=== PATIENT | male | born 1940 | race Caucasian/White ===

== ENCOUNTER → 2018-04-18 | Outpatient (CLI) | payer MEDICARE, OTHER ==
[~2018-04-18] MED LIST: ACETAMINOPHEN-1 EAC1 PO; ASPIR 8181 MG PO; CENTRUM SILVER1 EAC2 PO; KEFLEX500 M1 PO; PRINIVIL10 MG PO
== END ==
LOC: M.ULTRA 10:10
DX: I65.23 Occlusion and stenosis of bilateral carotid arteries (principal)

== ENCOUNTER → 2019-04-14 | Outpatient (CLI) | payer MEDICARE | LOC: M.ULTRA 04-09 17:27 | DX: I65.23 Occlusion and stenosis of bilateral carotid arteries (principal); I73.9 Peripheral vascular disease, unspecified; I71.4 Abdominal aortic aneurysm, without rupture; Z72.0 Tobacco use ==

== ENCOUNTER 2019-05-22 12:10 | Inpatient (IN) | payer MEDICARE, BC ==
[~2019-05-22] VITALS: Ht 172.7 cm; Wt 90.7 kg
--- NOTE | ~2019-05-22 | EKG ---
[place] [address] ELECTROCARDIOGRAM REPORT Name: LETICIA SANCHEZ Room: [address] ADM IN M.R.#: [id number] Admission: 05/22/19 Attend Phys: Zeeshan Drew Discharge: Date of : 36 Report #: [id number] THIS REPORT FOR: //name// [facility] Test Date: 2019-05-28 Test Time: 08:06:44 Pat Name: LETICIA SANCHEZ Department: Room: [address] Gender: M Tire Layer: REGINE : 1940 Requested By: Leticia Braun Order Number: [id number] Reading MD: Measurements Intervals [place] Rate: 72 P: 50 CO: 195 QRS: 49 QRSD: 110 T: 40 QT: 381 QTc: 417 Interpretive Statements Sinus rhythm Low voltage, precordial leads Compared to ECG 05/27/2019 09:09:10 No significant changes [email or web address] By: [id number] [id number] Epiphany EpiphanyMD /EPI
[2019-05-22 12:21] VITALS: BP 114/62
[2019-05-22] MEDS ORDERED: LIPITOR 20 MG T20 M1 PO (12:28)
[2019-05-22 13:36] LABS: HEMOGLOBIN 13.7 gm/dL (14.0-18.0); MCH 32.9 pg (26.0-34.0); MCHC 34.2 g/dL (28.0-37.0); MCV 96.3 fL (80.0-100.0); MPV 7.1 fl. (7.2-11.1); NUCLEATED RBCS 0 /100WBC; PLATELET COUNT* 390 thou/uL (150-400); RBC 4.15 mil/uL (4.50-6.00); WBC 13.5 thou/uL (4.0-11.0)
[2019-05-22 13:45] LABS: PO2 69.1 mmHg (75.0-100.0)
[2019-05-22 13:46] LABS: APTT 25.7 Seconds (25.0-31.3); INR 1.1; PROTIME 11.2 Seconds (9.20-11.50)
[2019-05-22 13:46] LABS: PCO2 62.7 mmHg (35.0-45.0); pH 7.259 (7.340-7.450)
[2019-05-22 13:57] LABS: CALCIUM 8.9 mg/dL (8.5-10.1); CREATININE 1.7 mg/dL (0.6-1.3); POTASSIUM 5.5 mmol/L (3.5-5.1)
[2019-05-22 14:00] LABS: ABSOLUTE BASOPHILS 0.3 thou/uL (0.0-0.2); ABSOLUTE EOSINOPHILS 0.1 thou/uL (0.0-0.7); ABSOLUTE LYMPHOCYTES 1.8 thou/uL (0.8-5.3); ABSOLUTE MONOCYTES 0.5 thou/uL (0.0-1.2); ABSOLUTE NEUTROPHILS 10.8 thou/uL (1.6-8.1); ATYPICAL LYMPHS 1 %; METAMYELOCYTES 3 %; PLATELET ESTIMATE ADEQUATE
[2019-05-22 14:01] LABS: TOTAL BILIRUBIN 0.5 mg/dL (<0.1-1.0); TOTAL PROTEIN 7.4 g/dL (6.4-8.2)
[2019-05-22 18:58] VITALS: BP 104/62
[2019-05-22 20:00] VITALS: BP 154/79
[2019-05-23 01:18] VITALS: BP 135/59
[2019-05-23 04:00] VITALS: BP 154/76
[2019-05-23 05:29] LABS: ABSOLUTE LYMPHOCYTES 0.6 thou/uL (0.8-5.3); ABSOLUTE MONOCYTES 1.4 thou/uL (0.0-1.2); ABSOLUTE NEUTROPHILS 10.2 thou/uL (1.6-8.1); BASOPHILS 0.1 %; MCH 32.9 pg (26.0-34.0); MCHC 34.2 g/dL (28.0-37.0); MCV 96.3 fL (80.0-100.0); MONOCYTES 11.2 %; MPV 6.7 fl. (7.2-11.1); NUCLEATED RBCS 0 /100WBC; PLATELET COUNT* 411 thou/uL (150-400); POLYS 83.7 %; RBC 3.94 mil/uL (4.50-6.00); WBC 12.2 thou/uL (4.0-11.0)
[2019-05-23 06:00] LABS: ALBUMIN 2.6 g/dL (3.4-5.0); CALCIUM 8.9 mg/dL (8.5-10.1); CREATININE 1.6 mg/dL (0.6-1.3); POTASSIUM 5.4 mmol/L (3.5-5.1); TOTAL BILIRUBIN 0.2 mg/dL (<0.1-1.0); TOTAL PROTEIN 7.8 g/dL (6.4-8.2)
[2019-05-23 08:00] VITALS: BP 120/69
[2019-05-23 12:37] VITALS: BP 153/80
[2019-05-23 15:45] LABS: URINE BILIRUBIN NEGATIVE (Negative); URINE BLOOD NEGATIVE (Negative); URINE CLARITY CLEAR; URINE COLOR YELLOW; URINE GLUCOSE-RANDOM NEGATIVE (Negative); URINE KETONES NEGATIVE (Negative); URINE LEUKOCYTES-REFLEX NEGATIVE (Negative); URINE NITRITE-REFLEX NEGATIVE (Negative); URINE PROTEIN TRACE (Negative); URINE SPECIFIC GRAVITY 1.025 (1.005-1.030); URINE UROBILINOGEN 0.2 E.U./dl (0.2-1.0)
[2019-05-23 15:48] VITALS: BP 108/57
[2019-05-23 20:00] VITALS: BP 152/71
[2019-05-24] VITALS: BP 143/70
[2019-05-24 04:00] VITALS: BP 145/79
[2019-05-24 08:00] VITALS: BP 132/77
[2019-05-24 12:49] LABS: ABSOLUTE LYMPHOCYTES 0.4 thou/uL (0.8-5.3); ABSOLUTE MONOCYTES 0.8 thou/uL (0.0-1.2); ABSOLUTE NEUTROPHILS 12.5 thou/uL (1.6-8.1); BASOPHILS 0.1 %; HEMOGLOBIN 12.6 gm/dL (14.0-18.0); LYMPHOCYTES 3.2 %; MCH 32.9 pg (26.0-34.0); MCHC 34.2 g/dL (28.0-37.0); MCV 96.2 fL (80.0-100.0); MONOCYTES 6.1 %; MPV 7.2 fl. (7.2-11.1); NUCLEATED RBCS 0 /100WBC; PLATELET COUNT* 405 thou/uL (150-400); POLYS 90.6 %; RBC 3.84 mil/uL (4.50-6.00); WBC 13.7 thou/uL (4.0-11.0)
[2019-05-24 13:11] LABS: ALBUMIN 2.5 g/dL (3.4-5.0); CALCIUM 8.8 mg/dL (8.5-10.1); CREATININE 1.5 mg/dL (0.6-1.3); POTASSIUM 4.7 mmol/L (3.5-5.1); TOTAL BILIRUBIN 0.2 mg/dL (<0.1-1.0); TOTAL PROTEIN 7.2 g/dL (6.4-8.2)
[2019-05-24 13:20] VITALS: BP 129/56
[2019-05-24 15:35] VITALS: BP 129/54
--- NOTE | 2019-05-24 16:39 | EKG ---
[place] [address] ELECTROCARDIOGRAM REPORT Name: LETICIA SANCHEZ Room: [address] ADM IN M.R.#: [id number] Admission: 05/22/19 Attend Phys: Zeeshan Drew Discharge: Date of : 36 Report #: [id number] THIS REPORT FOR: //name// [facility] Test Date: 2019-05-22 Test Time: 14:26:27 Pat Name: LETICIA SANCHEZ Department: Room: [facility] Gender: M Barber Or Beauty Shop Manager: [facility] : 1940 Requested By: Thomas Dooley Order Number: [id number] MD: Stalin Hong Measurements Intervals [place] Rate: 88 P: 64 DC: 195 QRS: 85 QRSD: 101 T: 45 QT: 366 QTc: 443 Interpretive Statements Sinus rhythm Borderline right axis deviation No previous ECG available for comparison Electronically Signed On 05-24-2019 16:38:35 KILN STACKER by Stalin Hong [email or web address] <ELECTRONICALLY SIGNED> By: Stalin Hong MD, [facility] 05/24/19 1638 1426 142 Stalin Hong MD, FACC /EPI
[2019-05-24 20:00] VITALS: BP 148/81
[2019-05-25] VITALS: BP 136/68
[2019-05-25 04:00] VITALS: BP 136/71
[2019-05-25 07:30] VITALS: BP 113/57
[2019-05-25 12:00] VITALS: BP 130/55
--- NOTE | 2019-05-25 12:28 | EKG ---
[place] [address] ELECTROCARDIOGRAM REPORT Name: LETICIA SANCHEZ Room: [address] ADM IN M.R.#: [id number] Admission: 05/22/19 Attend Phys: Zeehsan Drew Discharge: Date of : 36 Report #: [id number] THIS REPORT FOR: //name// [facility] Test Date: 2019-05-25 Test Time: 07:06:29 Pat Name: LETICIA SANCHEZ Department: Room: [address] Gender: M Cleat Feeder: CLARE : 1940 Requested By: Jalen Llamas Order Number: [id number] Ben MD: Leticia Braun Measurements Intervals [place] Rate: 138 P: MD: QRS: 78 QRSD: 88 T: 19 QT: 298 QTc: 452 Interpretive Statements Atrial fibrillation with rapid V-rate rsr' in v1 Compared to ECG 05/22/2019 14:26:27 Sinus rhythm no longer present Electronically Signed On 05-25-2019 12:27:50 LOSS PREVENTION AUDITOR by Leticia Braun [email or web address] <ELECTRONICALLY SIGNED> By: Leticia Braun MD, [facility] 05/25/19 1227 0706 Leticia Braun MD, [facility] /EPI
[2019-05-25 20:00] VITALS: BP 122/50
[2019-05-26 00:27] VITALS: BP 116/61
[2019-05-26 03:56] VITALS: BP 100/60
[2019-05-26 06:47] LABS: CHOLESTEROL 160 mg/dL (<200); HDL CHOLESTEROL 30 mg/dL (>40); LDL CHOLESTEROL 87 mg/dL (<100); TC:HDL 5.3 Ratio (Not establshd); TRIGLYCERIDE 217 mg/dL (<150); VLDL 43 mg/dL (<40)
[2019-05-26 06:48] LABS: SERUM ASSESSMENT Clear
[2019-05-26 07:30] VITALS: BP 97/52
[2019-05-26 11:41] VITALS: BP 92/58
--- NOTE | 2019-05-26 12:53 | EKG ---
[place] [address] ELECTROCARDIOGRAM REPORT Name: LETICIA SANCHEZ Room: [address] ADM IN .R.#: [id number] Admission: 05/22/19 Attend Phys: Zeeshan Drew Discharge: Date of : 36 Report #: [id number] THIS REPORT FOR: //name// [facility] Test Date: 2019-05-26 Test Time: 07:52:16 Pat Name: LETICIA SANCHEZ Department: Room: [address] Gender: M Hogshead Opener: : 1940 Requested By: Leticia Braun Order Number: [id number] Ben MD: Leticia Braun Measurements Intervals [place] Rate: 62 P: NC: QRS: 70 QRSD: 95 T: 47 QT: 424 QTc: 431 Interpretive Statements Atrial fibrillation Borderline low voltage, extremity leads Compared to ECG 05/25/2019 07:06:29 rate slowed Electronically Signed On 05-26-2019 12:52:33 LEAD MASSAGE THERAPIST by Leticia Braun [email or web address] <ELECTRONICALLY SIGNED> By: Leticia Braun MD, [facility] 05/26/19 1252 0752 075 Leticia Braun MD, FACC /EPI
--- NOTE | 2019-05-26 15:01 | EKG ---
[place] [address] ELECTROCARDIOGRAM REPORT Name: LETICIA SANCHEZ Room: [address] ADM IN .R.#: [id number] Admission: 05/22/19 Attend Phys: Zeeshan Drew Discharge: Date of : 36 Report #: [id number] THIS REPORT FOR: //name// [facility] Test Date: 2019-05-26 Test Time: 14:18:02 Pat Name: LETICIA SANCHEZ Department: Room: [address] Gender: M Regional Account Executive: : 1940 Requested By: Leticia Braun Order Number: [id number] Ben MD: Leticia Braun Measurements Intervals [place] Rate: 57 P: 52 [place]: 189 QRS: 52 QRSD: 106 T: 34 QT: 446 QTc: 435 Interpretive Statements Sinus rhythm Low voltage, precordial leads Compared to ECG 05/26/2019 07:52:16 Atrial fibrillation no longer present Electronically Signed On 05-26-2019 15:00:31 NAIL FEEDER by Leticia Braun [email or web address] <ELECTRONICALLY SIGNED> By: Leticia Braun MD, [facility] 05/26/19 1500 1418 141 Leticia Braun MD, [facility] /EPI
--- NOTE | 2019-05-26 15:33 | 2DMMODE ---
[place] [address] 2 D/M-MODE ECHOCARDIOGRAM Name: LETICIA SANCHEZ Room: [address] IN .R.#: [id number] Admission: 05/22/19 Attend Phys: Jalen Llamas Discharge: Date of : 36 Date of Service: 05/26/19 1532 Report #: [id number] THIS REPORT FOR: //name// APPROVED REPORT Study performed: 05/26/2019 10:54:50 EXAM: Comprehensive 2D, Doppler, and color-flow Echocardiogram BSA: 2.01 HR: 68 bpm BP: 97/52 mmHg Other Information Study Quality: Technically Difficult Technically limited study due to inability to position patient. Indications COPD Atrial Fibrillation 2D Dimensions IVSd: 10.42 (7-11mm) LVOT Diam: 19.62 (18-24mm) LVDd: 41.72 mm PWd: 10.42 (7-11mm) Ascending Ao: 30.04 (22-36mm) LVDs: 26.92 (25-40mm) Aortic Root: 26.33 mm Volumes Left Atrial Volume (Systole) LA ESV Index: 26.30 mL/m2 Aortic Valve AoV Peak Richard.: 1.25 m/s AO Peak Gr.: 6.22 mmHg LVOT Max P.93 mmHg AO Mean Gr.: 3.62 mmHg LVOT Mean P.90 mmHg LVOT Max V: 0.69 m/s AO V2 VTI: 24.72 cm LVOT Mean V: 0.43 m/s LEODAN (VTI): 1.47 cm2 LVOT V1 VTI: 12.01 cm Mitral Valve E/A Ratio: 1.66 MV Decel. Time: 149.18 ms MV E Max Richard.: 0.95 m/[place] [address] 2 D/M-MODE ECHOCARDIOGRAM Name: LETICIA SANCHEZ Room: [address] IN ..#: [id number] Admission: 05/22/19 Attend Phys: Jalen Llamas Discharge: Date of : 36 Date of Service: 05/26/19 1532 Report #: [id number] MV PHT: 43.26 ms MVA (PHT): 5.09 cm2 TDI E/Lateral E': 7.31 E/Medial E': 8.64 Medial E' Richard.: 0.11 m/s Lateral E' Richard.: 0.13 m/s Pulmonary Valve PV Peak Richard.: 0.62 m/s PV Peak Gr.: 1.54 mmHg Tricuspid Valve RAP Estimate: 5.00 mmHg TR Peak Gr.: 18.93 mmHg RVSP: 23.93 mmHg PA Pressure: 23.93 mmHg Left Ventricle The left ventricle is normal size. There is normal left ventricular wall thickness. The left ventricular systolic function is normal. A false tendon is noted. LVEF is 55-60%. This study is not technically sufficient to allow evaluation of the LV diastolic function due to atrial fibrillation. Right Ventricle Right ventricle is mildly dilated. The right ventricular systolic function is normal. Atria Left atrium is mildly dilated. Right atrium is mildly dilated. Aortic Valve The aortic valve is normal in structure. No aortic regurgitation is present. There is no aortic valvular stenosis. Mitral Valve The mitral valve is normal in structure. There is no mitral valve regurgitation noted. No evidence of mitral valve stenosis. Tricuspid Valve The tricuspid valve is normal in structure. Trace tricuspid regurgitation. No pulmonary hypertension. Pulmonic Valve The pulmonary valve is normal in structure. There is no pulmonic [place] [address] 2 D/M-MODE ECHOCARDIOGRAM Name: LETICIA SANCHEZ Room: [address] IN [facility]#: [id number] Admission: 05/22/19 Attend Phys: Jalen Llamas Discharge: Date of : 36 Date of Service: 05/26/19 1532 Report #: [id number] Great Vessels The aortic root is normal in size. The inferior vena cava is not well visualized. Pericardium There is no pericardial effusion. <Conclusion> The left ventricle is normal size. There is normal left ventricular wall thickness. The left ventricular systolic function is normal. LVEF is 55-60%. Right ventricle is mildly dilated. Left atrium is mildly dilated. Right atrium is mildly dilated. Trace tricuspid regurgitation. No pulmonary hypertension. <ELECTRONICALLY SIGNED> By: Stalin Hong MD, FACC 05/26/19 1532 1532 1532 Stalin Hong MD, FACC /INF
--- NOTE | 2019-05-26 15:51 | CON ---
[address] [address] CONSULTATION Name: SANCHEZLETICIA PARK Room: [address] ADM IN M.R.#: [id number] Admission: 05/22/19 Attend Phys: Zeeshan Drew Discharge: Date of : 36 Report #: [id number] THIS REPORT FOR: //name// CC: Mic Llamas DATE OF SERVICE: 05/25/2019 HISTORY OF PRESENT ILLNESS: The patient is an 79-year-old single white male who I was asked to see in the hospital today after he fell. There are minimal records here at [place]. There are no family members available. The patient denies a previous history of heart disease. However, he has had a long history of vascular disease with previous left carotid stent placed at [place] about 10 years ago. He has also had bilateral renal stents placed as well as 3 stents in his left superficial femoral artery. He denies a history of claudication. He notes he saw his vascular surgeon last year and had carotid Doppler study done. He also has evidence of small abdominal aortic aneurysm. He denies a history of chest pain. Recently, he has been more short of breath and coughing. He denied any edema. Denies a history of chest tightness or palpitations. Three days ago, he was at home when he tripped in his home and fell. His family members brought him here to [facility]. Because of the pain, he was admitted. He did not require stitches or surgery. He apparently hit his head. On the monitor, he had an episode of rapid atrial fibrillation. He was placed on IV diltiazem and converted to sinus rhythm. I was asked to see him for further evaluation and treatment. PAST MEDICAL HISTORY: Significant for tonsillectomy, hypertension and hyperlipidemia. MEDICATIONS: Include lisinopril and a statin drug. ALLERGIES: He has no known drug allergies. FAMILY HISTORY: Positive for heart disease. SOCIAL HISTORY: He is , lives by herself in [place]. He is retired from sales. Smokes a pack of cigarettes a day. No alcohol abuse. REVIEW OF SYSTEMS: He has had no history of stroke. Denies a history of asthma. No history of peptic ulcer disease, gastrointestinal bleeding, kidney disease, liver disease, cancer, psychiatric illness. He does have psoriasis. PHYSICAL EXAMINATION: GENERAL: Reveals an elderly male, lying in bed. He appeared in no distress. VITAL SIGNS: He had a blood pressure of 130/70, pulse is 90, [place] [address] CONSULTATION Name: LETICIA SANCHEZ Room: [address] IN .R.#: [id number] Admission: 05/22/19 Attend Phys: Zeeshan Drew Discharge: Date of : 36 Report #: [id number] HEENT: He was anicteric. Conjunctivae pink. Mucous membranes moist. NECK: Veins nondistended. No carotid bruits. CHEST: Clear to auscultation. CARDIOVASCULAR: Regular rate and rhythm. No significant murmur or rub. ABDOMEN: Soft. EXTREMITIES: Had no edema. Dorsalis pedis pulse cannot be palpated. SKIN: Cool and dry. NEUROLOGIC: Nonfocal. His workup when the patient arrived in the Emergency Room 3 days ago, he appeared to be in a sinus rhythm with an incomplete right bundle branch block. On the monitor; however, 2 days ago, he had an episode of rapid atrial fibrillation that persisted. He then returned to sinus rhythm. Another episode of rapid atrial fibrillation this morning and now back in sinus rhythm. His workup so far, he had CT scan of the chest when he arrived, this showed no acute abnormality. Carotid Doppler study done last month showed no significant stenosis. Abdominal ultrasound done last month showed a 5.9 cm long, 3.7 cm x 4 cm diameter aneurysm, which was unchanged from previous ultrasounds. LABORATORY DATA: Sodium 135, BUN 42, creatinine is 1.7. His liver function studies were normal. Troponin 0.06. BNP 3916. White blood cell count 13.7, hemoglobin 12.6. IMPRESSION AND RECOMMENDATIONS: 1. Paroxysmal atrial fibrillation. At this time, I would recommend starting antiarrhythmic therapy. I would recommend starting the patient on sotalol 80 mg twice a day. I would also consider anticoagulation. 2. Hypertension. The patient is on angiotensin-converting enzyme inhibitor. 3. Hyperlipidemia. The patient is on a statin drug. 4. Previous carotid stents, asymptomatic. I would continue aspirin a day. 5. Previous stenting of the femoral artery. No symptoms of claudication. 6. Previous history of renal artery stents. 7. Chronic renal insufficiency. 8. Tobacco abuse. 9. Bronchitis. <ELECTRONICALLY SIGNED> By: Leticia Braun MD, FACC 05/26/19 1551 1342 [id number] Braun MD, FACC /nt
[2019-05-26 16:00] VITALS: BP 117/71
[2019-05-26 20:54] VITALS: BP 114/49
[2019-05-27 00:05] VITALS: BP 121/62
[2019-05-27 04:18] VITALS: BP 142/76
[2019-05-27 07:00] LABS: HEMOGLOBIN 12.6 gm/dL (14.0-18.0); MCH 32.7 pg (26.0-34.0); MCHC 34.1 g/dL (28.0-37.0); MCV 95.9 fL (80.0-100.0); MPV 6.6 fl. (7.2-11.1); RBC 3.86 mil/uL (4.50-6.00); RDW-CV 14.1 % (10.5-14.5)
[2019-05-27 07:19] LABS: CALCIUM 8.3 mg/dL (8.5-10.1); CREATININE 1.6 mg/dL (0.6-1.3); POTASSIUM 5.2 mmol/L (3.5-5.1)
[2019-05-27 09:00] VITALS: BP 143/72
[2019-05-27 11:30] VITALS: BP 128/51
--- NOTE | 2019-05-27 11:49 | EKG ---
[place] [address] ELECTROCARDIOGRAM REPORT Name: LETICIA SANCHEZ Room: [address] ADM IN .R.#: [id number] Admission: 05/22/19 Attend Phys: Zeeshan Drew Discharge: Date of : 36 Report #: [id number] THIS REPORT FOR: //name// [facility] Test Date: 2019-05-27 Test Time: 09:09:10 Pat Name: LETICIA SANCHEZ Department: Room: [address] Gender: M Dish Up Person: : 1940 Requested By: Leticia Braun Order Number: [id number] Ben MD: Leticia Braun Measurements Intervals [place] Rate: 70 P: 47 [place]: 178 QRS: 53 QRSD: 100 T: 20 QT: 387 QTc: 418 Interpretive Statements Sinus rhythm Low voltage, precordial leads Compared to ECG 05/26/2019 14:18:02 rate increased Electronically Signed On 05-27-2019 11:49:14 DATA MODELING ARCHITECT by Leticia Braun [email or web address] <ELECTRONICALLY SIGNED> By: Leticia Braun MD, [facility] 05/27/19 1149 8 8 Leticia Braun MD, FACC /EPI
[2019-05-27 20:34] VITALS: BP 115/60
[2019-05-28] VITALS: BP 137/62
[2019-05-28 04:00] VITALS: BP 141/67
[2019-05-28 08:00] VITALS: BP 152/72
[2019-05-28] MEDS ORDERED: KEFLEX500 M1 PO (11:59)
[2019-05-28] MEDS ORDERED: PREDNISONE 10 M10 MG PO (11:59)
[2019-05-28 12:00] VITALS: BP 145/78
[2019-05-28] MEDS ORDERED: ELIQUIS2.5 MG PO (14:16)
[2019-05-28] MEDS ORDERED: PROPAFENONE 15150 MG PO (14:20)
[2019-05-28] MEDS ORDERED: NICOTINE TRANSD21 M1 TRANSDERM (14:41)
[2019-05-28 16:00] VITALS: BP 145/78; BP 149/82
== END 2019-05-28 15:20 | disposition home health service (06) | DRG 871 ==
LOC: M.ERS 12:10 → M.2W 15:22 → M.TBA-ER 15:22 → M.2W 18:49
PROVIDERS: Family Medicine; Internal Medicine Cardiovascular Disease; ADMIT Internal Medicine
PROC: 5A09357 Assistance with Respiratory Ventilation, Less than 24 Consecutive Hours, Continuous Positive Airway Pressure (ICD-10-PCS; principal; 2019-05-23)
DX: A41.9 Sepsis, unspecified organism (principal); J18.9 Pneumonia, unspecified organism; J96.01 Acute respiratory failure with hypoxia; S32.000A Wedge compression fracture of unspecified lumbar vertebra, initial encounter for closed fracture; J44.1 Chronic obstructive pulmonary disease with (acute) exacerbation; J44.0 Chronic obstructive pulmonary disease with (acute) lower respiratory infection; I13.0 Hypertensive heart and chronic kidney disease with heart failure and stage 1 through stage 4 chronic kidney disease, or unspecified chronic kidney disease; E78.5 Hyperlipidemia, unspecified; I10 Essential (primary) hypertension; M54.5 Low back pain; E78.00 Pure hypercholesterolemia, unspecified; J40 Bronchitis, not specified as acute or chronic; F17.210 Nicotine dependence, cigarettes, uncomplicated; I48.0 Paroxysmal atrial fibrillation; N18.9 Chronic kidney disease, unspecified; I50.9 Heart failure, unspecified; E87.5 Hyperkalemia; W18.39XA Other fall on same level, initial encounter; I49.5 Sick sinus syndrome; R79.89 Other specified abnormal findings of blood chemistry; Y93.89 Activity, other specified; Y92.89 Other specified places as the place of occurrence of the external cause; Y99.8 Other external cause status; Z86.73 Personal history of transient ischemic attack (TIA), and cerebral infarction without residual deficits; Z95.828 Presence of other vascular implants and grafts; Z90.89 Acquired absence of other organs; Z95.820 Peripheral vascular angioplasty status with implants and grafts; Z82.49 Family history of ischemic heart disease and other diseases of the circulatory system; Z79.82 Long term (current) use of aspirin; Z80.9 Family history of malignant neoplasm, unspecified; Z79.01 Long term (current) use of anticoagulants; Z79.899 Other long term (current) drug therapy

== ENCOUNTER → 2019-07-10 | Outpatient (CLI) | payer MEDICARE, BC ==
[~2019-07-10] MED LIST changes: +ELIQUIS2.5 MG PO; +LIPITOR 20 MG T20 M1 PO; +NICOTINE TRANSD21 M1 TRANSDERM; +PREDNISONE 10 M10 MG PO; +PROPAFENONE 15150 MG PO
== END ==
LOC: M.MRI 10:59
DX: M43.8X6 Other specified deforming dorsopathies, lumbar region (principal)